=== PATIENT | female | born 1985 ===

== ENCOUNTER 2024-08-31 08:15 | Inpatient (IN) | payer OTHER ==
[~2024-08-31] VITALS: Ht 162.6 cm; Wt 57.2 kg
[2024-08-31 09:39] VITALS: BP 101/66
[2024-08-31] MEDS ORDERED: IRON236 MG (09:43)
[2024-08-31 09:44] VITALS: BP 112/70
[2024-08-31 10:18] LABS: HEMATOCRIT 40.9 % (36.0-45.00); HEMOGLOBIN 13.5 g/dL (12.0-15.00); MEAN CELL VOLUME 91.2 fL (80.00-100.00); RED BLOOD COUNT 4.49 M/uL (4.00-6.00); RED CELL DISTRIBUTION WIDTH 12.8 % (11.5-14.5)
[2024-08-31 10:44] LABS: INR 1.1; PARTIAL THROMBOPLASTIN TIME 30.3 SECONDS (22.0-34.0); PROTHROMBIN TIME 11.9 SECONDS (9.0-11.5)
[2024-08-31 10:55] LABS: ALBUMIN 3.8 gm/dL (3.4-5.0); BILIRUBIN TOTAL 0.64 mg/dL (0.3-1.2); CALCIUM 9.6 mg/dL (8.5-10.1); CREATININE SERUM 0.49 mg/dL (0.55-1.02); GFR 140.6; GLOBULINA 3.9 G/DL (2.4-3.5); POTASSIUM 4.12 mEq/L (3.5-5.1); TOTAL PROTEIN 7.7 gm/dL (6.4-8.2)
[2024-08-31 11:08] LABS: PLATELET COUNT 323 K/uL (150-450)
[2024-09-09] MEDS ORDERED: POVIDONE-IODINE 118 ML BOTT TOP ONE (07:14)
[2024-09-09] MEDS ORDERED: CEFOXITIN SODIUM 2,000 MG VIAL IV ONE ×2 (07:19→08:30)
[2024-09-09] MEDS ORDERED: SUGAMMADEX SODIUM 200 MG/2 ML VIAL IV ONE (09:02)
[2024-09-09] MEDS ORDERED: MORPHINE SULFATE 4 MG/ML VIAL IV ONE (09:50)
[2024-09-09] MEDS ORDERED: RINGERS SOLUTION,LACTATED 1,000 ML IV SCH (10:45)
[2024-09-09] MEDS ORDERED: KETOROLAC TROMETHAMINE 30 MG VIAL IM NR (10:45)
[2024-09-09] MEDS ORDERED: MORPHINE SULFATE 4 MG/ML CARTRIDGE IV SCH (12:00)
[2024-09-09 13:18] VITALS: BP 101/66; O2SAT 3
[2024-09-09 13:19] VITALS: BP 101/66
[2024-09-09 13:31] LABS: HEMATOCRIT 31.2 % (36.0-45.00); HEMOGLOBIN 10.7 g/dL (12.0-15.00); MEAN CELL VOLUME 90.3 fL (80.00-100.00); MEAN CORPUSCULAR HEMOGLOBIN 31.1 pg (27.00-32.0); MEAN CORPUSCULAR HGB CONC 34.5 g/dl (32.0-36.0); PLATELET COUNT 270 K/uL (150-450); RED BLOOD COUNT 3.45 M/uL (4.00-6.00); RED CELL DISTRIBUTION WIDTH 12.9 % (11.5-14.5)
[2024-09-09 16:23] VITALS: BP 106/66
[2024-09-09] MEDS ORDERED: CEFAZOLIN SODIUM 1,000 MG VIAL IV SCH (17:00)
[2024-09-09] MEDS ORDERED: KETOROLAC TROMETHAMINE 10 MG TABLET PO SCH (18:00)
[2024-09-09 20:43] VITALS: BP 100/63
[2024-09-10 02:07] VITALS: BP 90/60
[2024-09-10 06:44] LABS: HEMATOCRIT 30.2 % (36.0-45.00); HEMOGLOBIN 10.6 g/dL (12.0-15.00); MEAN CORPUSCULAR HEMOGLOBIN 31.7 pg (27.00-32.0); MEAN CORPUSCULAR HGB CONC 35.2 g/dl (32.0-36.0); PLATELET COUNT 259 K/uL (150-450); RED BLOOD COUNT 3.36 M/uL (4.00-6.00); RED CELL DISTRIBUTION WIDTH 12.9 % (11.5-14.5)
[2024-09-10 08:10] VITALS: BP 96/62
[2024-09-10] MEDS ORDERED: ACETAMINOPHEN WITH CODEINE 1 UDTAB TABLET PO SCH (09:00)
[2024-09-10 16:00] VITALS: BP 76/51
[2024-09-10 20:00] VITALS: BP 99/63
[2024-09-11 01:45] VITALS: BP 98/60
[2024-09-11 06:50] VITALS: BP 90/60
[2024-09-11 08:00] VITALS: BP 101/66
[2024-09-11 11:10] LABS: HEMATOCRIT 27.7 % (36.0-45.00); MEAN CELL VOLUME 90.6 fL (80.00-100.00); MEAN CORPUSCULAR HEMOGLOBIN 31.4 pg (27.00-32.0); MEAN CORPUSCULAR HGB CONC 34.6 g/dl (32.0-36.0); PLATELET COUNT 234 K/uL (150-450); RED BLOOD COUNT 3.05 M/uL (4.00-6.00); RED CELL DISTRIBUTION WIDTH 13.3 % (11.5-14.5)
[2024-09-11 11:27] LABS: HEMOGLOBIN 9.6 g/dL (12.0-15.00)
[2024-09-11] MEDS ORDERED: FERROUS SULFATE 325 MG TABLET.EC PO SCH (13:02)
[2024-09-11] MEDS ORDERED: PNV,CALCIUM 72/IRON/FOLIC ACID 1 TAB TABLET PO SCH (13:02)
[2024-09-11 15:29] VITALS: BP 91/65
[2024-09-12] VITALS: BP 112/73
[2024-09-12 07:35] VITALS: BP 106/69
[2024-09-12] MEDS ORDERED: ACETAMINOPHEN-1 EAC2 PO (10:35)
[2024-09-12] MEDS ORDERED: PRENATE ENHANC1 EACH PO (10:35)
[2024-09-12] MEDS ORDERED: KETO10TA2 PO (10:35)
[2024-09-12] MEDS ORDERED: FERROUS SULFAT325 M1 PO (10:35)
== END 2024-09-12 11:59 | disposition home or self-care (01) | DRG 743 ==
LOC: O/R 09-09 06:00 → OB/GYN 09-09 06:00 → SURH 09-09 07:00 → OB/GYN 09-09 12:40
PROVIDERS: ADMIT Obstetrics & Gynecology Maternal & Fetal Medicine; ATTEND Obstetrics & Gynecology Maternal & Fetal Medicine
PROC: 0UB90ZZ Excision of Uterus, Open Approach (ICD-10-PCS; principal; 2024-09-09 07:00)
DX: D25.9 Leiomyoma of uterus, unspecified (principal)